=== PATIENT | male | born 1960 | race Caucasian/White ===

== ENCOUNTER 2016-11-03 20:04 | Emergency (ER) | payer SELFPAY ==
[~2016-11-03] VITALS: Ht 160 cm; Wt 56.8 kg
[2016-11-03 21:23] VITALS: BP 129/81
== END 2016-11-03 21:27 | disposition home or self-care (01) ==
LOC: EMS 20:08
DX: S01.81XA Laceration without foreign body of other part of head, initial encounter (principal); W22.03XA Walked into furniture, initial encounter; Y93.89 Activity, other specified; Y92.009 Unspecified place in unspecified non-institutional (private) residence as the place of occurrence of the external cause; Y99.9 Unspecified external cause status
CPT/HCPCS: 99283